=== PATIENT | male | born 1980 | race Caucasian/White ===

== ENCOUNTER → 2016-09-14 | Outpatient (CLI) | payer BC ==
--- NOTE | 2016-09-14 11:52 | US ---
EXAMINATION TYPE: US abdomen complete DATE OF EXAM: 09/14/2016 10:35 AM COMPARISON: NONE CLINICAL HISTORY: RUQ Pain R10.11. Pt states RUQ pain EXAM MEASUREMENTS: Liver Length: 18.4 cm Gallbladder Wall: 0.2 cm CBD: 0.6 cm Spleen: 10.9 cm Right Kidney: 13.5 x 5.4 x 5.2 cm Left Kidney: 14.4 x 6.2 x 5.9 cm TECHNOLOGIST IMPRESSION: Pancreas: wnl, tail obscured by overlying bowel gas Liver: Enlarged, heterogeneous Gallbladder: wnl Evidence for sonographic Cristina's sign: No CBD: wnl Spleen: wnl Right Kidney: wnl Left Kidney: wnl Upper IVC: wnl Abd Aorta: wnl IMPRESSION: 1. Normal abdomen ultrasound.
== END | disposition home or self-care (01) ==
LOC: RADUSWWP 09:58
PROVIDERS: ATTEND Family Medicine
DX: R10.11 Right upper quadrant pain (principal)
CPT/HCPCS: 76700

== ENCOUNTER → 2016-10-24 | Outpatient (CLI) | payer BC ==
--- NOTE | 2016-10-24 15:44 | NM ---
EXAMINATION TYPE: NM hepatobiliary w EF DATE OF EXAM: 10/24/2016 3:28 PM COMPARISON: Ultrasound abdomen 14 September 2016 HISTORY: Right upper quadrant pain TECHNIQUE: After the intravenous administration of 5.4 mCi Tc 99m Mebrofenin hepatobiliary scintigrap hy is performed. Immediate images post injection. FINDINGS: There is satisfactory initial accumulation of tracer by the liver. The gallbladder is visualized wit hin 8 minutes. The small bowel activity is noted only on delayed images. At one hour 8 ounces of or al ensure plus is given to mimic CCK and gallbladder ejection fraction is calculated at 61 %, in the normal range. Therefore there is no scintigraphic evidence of cystic or common bile duct obstruction to suggest acute cholecystitis or gallbladder dyskinesia. IMPRESSION: Some delay in small bowel visualization, bile duct obstruction is not evident however
== END | disposition home or self-care (01) ==
LOC: RADNMMAIN 12:53
PROVIDERS: ATTEND Family Medicine
DX: R10.11 Right upper quadrant pain (principal)
CPT/HCPCS: 78226; A9537